=== PATIENT | male | born 1975 | race African-American/Black ===

== ENCOUNTER 2017-08-06 00:24 | Emergency (ER) | payer OTHER ==
[~2017-08-06] VITALS: Ht 180.3 cm; Wt 136.4 kg
[2017-08-06] MEDS ORDERED: PRAV20TA4 PO (00:31)
[2017-08-06] MEDS ORDERED: HYDR25TA PO (00:31)
[2017-08-06] MEDS ORDERED: GLIP5 PO (00:31)
[2017-08-06] MEDS ORDERED: ASPI-556 PO (00:31)
[2017-08-06] MEDS ORDERED: BENA10TA3 PO (00:31)
[2017-08-06 00:37] LABS: GLUCOSE,POINT OF CARE 187 MG/DL (70-110)
[2017-08-06 01:59] VITALS: BP 135/69
== END 2017-08-06 02:29 | disposition home or self-care (01) ==
LOC: EMS 00:26
DX: S83.91XA Sprain of unspecified site of right knee, initial encounter (principal); E66.9 Obesity, unspecified; E11.9 Type 2 diabetes mellitus without complications; E78.00 Pure hypercholesterolemia, unspecified; I10 Essential (primary) hypertension; Z68.41 Body mass index [BMI] 40.0-44.9, adult; Z79.82 Long term (current) use of aspirin; W19.XXXA Unspecified fall, initial encounter; Y93.89 Activity, other specified; Y92.89 Other specified places as the place of occurrence of the external cause; Y99.8 Other external cause status
CPT/HCPCS: 29505; 82962; 99284

== ENCOUNTER 2025-02-03 20:23 | Emergency (ER) | payer OTHER ==
[~2025-02-03] VITALS: Ht 180.3 cm; Wt 125.0 kg
[~2025-02-03 20:23] MED LIST: ASPI-556 PO; BENA-16 PO; GLIP5TAB16 PO; HYDR25TA2 PO; PRAV20TA4 PO
[2025-02-03 20:32] VITALS: TEMP 98.4
[2025-02-03 20:57] LABS: BASOPHILS % (AUTO) 0.4 % (0.0-2.0); EOSINOPHILS % (AUTO) 0.6 % (1.0-6.0); HEMOGLOBIN 14.2 g/dL (13.5-17.5); LYMPHOCYTES # (AUTO) 1.3 K/uL (1.0-4.8); LYMPHOCYTES % (AUTO) 18.9 % (22.0-44.0); MEAN CORPUSCULAR HEMOGLOBIN 29.4 pg (26.0-34.0); MEAN CORPUSCULAR HGB CONC 33.1 G/dL (31.0-37.0); MEAN CORPUSCULAR VOLUME 89 fL (80-100); MONOCYTES # (AUTO) 0.6 K/uL (0.1-1.0); MONOCYTES % (AUTO) 8.8 % (2.0-9.0); NEUTROPHILS # (AUTO) 4.8 K/uL (1.8-7.7); NEUTROPHILS % (AUTO) 71.3 % (40.0-70.0); PLATELET COUNT (AUTO) 273 K/uL (150-450); RED BLOOD CELL COUNT(AUTO) 4.83 MIL/uL (4.50-5.90); RED CELL DISTRIBUTION WIDTH 14.5 % (11.5-14.5); WHITE BLOOD COUNT (AUTO) 6.7 K/uL (4.5-11.0)
[2025-02-03 21:02] LABS: ANION GAP 6 mmol/L (8-16); CALCIUM, TOTAL 9.3 mg/dL (8.8-10.5); CARBON DIOXIDE 31 mmol/L (22-29); CHLORIDE 104 mmol/L (98-107); CREATININE 1.02 mg/dL (0.60-1.30); GLOMERULAR FILTR. RATE CALC > 60 mL/min (>60); GLUCOSE,RANDOM 93 mg/dL (70-110); POTASSIUM 4.2 mmol/L (3.5-5.1); SODIUM SERUM 141 mmol/L (136-145); UREA NITROGEN, BLOOD 11 mg/dL (7-18)
[2025-02-03 21:08] LABS: ALBUMIN 3.7 g/dL (3.4-5.0); BILIRUBIN,DIRECT 0.3 mg/dL (0.00-0.20); BILIRUBIN,TOTAL 1.2 mg/dL (0.1-1.0); TOTAL PROTEIN, SERUM 7.8 g/dL (6.4-8.2)
[2025-02-03 21:13] LABS: TROPONIN I-HIGH SENSITIVITY 4 ng/L (<76)
[2025-02-03 21:17] LABS: B-TYPE NATRIURETIC PEPTIDE 12 pg/mL (0-100)
[2025-02-03 22:21] LABS: CREATINE KINASE, TOTAL ONLY 461 U/L (39-308)
[2025-02-03 22:22] LABS: TROPONIN I-HIGH SENSITIVITY Less Than 4 ng/L (<76)
[2025-02-03 22:28] VITALS: BP 130/79; PULSE 81; RESP 17; O2SAT 99
== END 2025-02-03 22:29 | disposition still patient (30) ==
LOC: EMS 20:29
DX: R07.89 Other chest pain (principal); E11.9 Type 2 diabetes mellitus without complications; I10 Essential (primary) hypertension; E78.00 Pure hypercholesterolemia, unspecified; Z79.82 Long term (current) use of aspirin; Z79.899 Other long term (current) drug therapy
CPT/HCPCS: 71045; 80048; 80076; 82550; 82962; 83880; 84484; 85025; 93005; 99285; 36415-L1; 36415-TC